=== PATIENT | female | born 1990 | race Caucasian/White ===

== ENCOUNTER 2017-06-27 00:29 | Inpatient (IN) | payer MEDICAID ==
[2017-06-27 01:55] VITALS: BMI 27.1
[2017-06-27 02:33] LABS: BASO % 0.4 % (0.0-2.0); EOS # 0.3 K/uL (0.0-0.7); EOS % 4.6 % (0.0-4.0); LYMPH # 1.7 K/uL (1.0-4.3); LYMPH % 25.8 % (20.0-40.0); MEAN CELL VOLUME 91.8 fl (81.0-99.0); MEAN CORPUSCULAR HEMOGLOBIN 31.6 pg (27.0-31.0); MEAN CORPUSCULAR HGB CONC 34.4 g/dL (33.0-37.0); MEAN PLATELET VOLUME 10.1 fl (7.2-11.7); MONO # 0.7 K/uL (0.0-0.8); MONO % 10.1 % (0.0-10.0); NEUT % 59.1 % (50.0-75.0); NRBC % 0.1 % (0.0-0.0); RED CELL DISTRIBUTION WIDTH 15.2 % (11.5-14.5); WHITE BLOOD COUNT 6.7 K/uL (4.8-10.8)
[2017-06-27] MEDS: Lactated Ringer's 1,000 ML IV SCH ×2 (02:45→03:45)
[2017-06-27] MEDS ORDERED: Oxytocin 30 units/LR 500ML 30 U/500 ML BAG IV ONE (03:22)
[2017-06-27 03:23] VITALS: O2SAT 100
[2017-06-27] MEDS ORDERED: Lactated Ringer's 1,000 ML IV SCH (04:45)
[2017-06-27] MEDS ORDERED: ceFAZolin 1 GM in Sodium Chloride 0.9% 100 ML IVPB ONE (05:30)
--- NOTE | 2017-06-27 06:26 | OBHP ---
Datetime: 06/27/2017 02:30 IP Adm Impression: Term, intrauterine ; Ruptured Membranes Pelvic Type - PN: Adequate Extremities - PN: Normal Abdomen - PN: Normal Back - PN: Normal Breast - PN: Not Done Lungs - PN: Normal Heart - PN: Normal Thyroid - PN: Not Done Neurologic - PN: Normal HEENT - PN: Normal General - PN: Normal FHR - Baseline A Provider: 137 Contraction Comments Provider: present x4-5 minutes Gestation - Est Wks by US: 38.6 EGA AdmitDate IP: 38.6 Vital Signs Provider: Reviewed; Within Normal Limits IP Indication for Induction: PROM IP Chief Complaint: Suspected ruptured membranes NICHD Variability Prov Fetus A: Moderate 6-25bpm NICHD Accel Fetus A IP Provider: 15X15 FHR Category Provider Fetus A: Category I NICHD Decel Fetus A IP Provider: None Dilatation, Provider: 0 Effacement, Provider: 0 Genitourinary Exam: Normal DTRs - PN: Not Done Datetime: 06/27/2017 02:00 IP Admit Plan: Admit to unit; Initiate Section protocol Admit Comment, IP Provider: CHIEF COMPLAINT: LOF HPI: 26 yo at 38.6 wks GA with EDC by lmp +ROM, FM, CTX; - VB last U/S 05/22/2017 last visit06/20/2017 GBS neg [facility] care [facility] chart rev'd PAST OB HX: 2012 stat C/S: meconium in DR @ 40 week, M PAST [employer] HX: STD: neg, PAP: pt. unsure PMHX: none PAST SX HX: c/s 2012 SOCIAL HX: Denies: SMOKING, ALCOHOL, DRUGS MEDICATION: PNV, Tylenol 250 mg x2 ALLERGIES: NKDA VITALS: 116/63 88 PE: General: pleasant HEENT: normocephalic, PERRLA; AAOx3 Heart: no murmurs, regular rate and rhythm, S1, S2 Lungs: clear to auscultation bilaterally, no wheezing Abodmen: gravid CVA: negative SSE/PELVIC EXN: closed cervix Bed side u/s: IUP MONITOR (normal) Variablity: moderate: 6-25 bpm ACC: 15x15 DECC: none FHR: 137 ASSESSMENT: 26 yo IUP at 38.6 wks with h/o c/s in 2013 for meconium Undocumented scar. Admitt ed for early labor Anemia 10.8/32.2 PLAN Admit to Andrade Mauricio, PGY1 OB Hospitalist note: This pt was seen and examined by me. Agree with above note. MEREO With translating yrn, shelli and procedure was explained with risks/complications. She unde rstood. Her questoins answered. Informed consent obtained Amniotic Fluid Color, Provider: Clear Membranes, Provider: Ruptured Comments, ACOG Physical Exam: ROS: General: no weakness; no fatigue HEENT: no TOBIAS; no visual dist CV: no palpitations; no no CP GI: no N/V no diarhea : no F/U/D MS: No joint pain Pool Provider: Positive IP Hx Assessment: The History has been Reviewed and is Current
[2017-06-27] MEDS ORDERED: Phenylephrine 10 mg/ml Inj ONE (06:58)
[2017-06-27] MEDS ORDERED: DiphenhydrAMINE 50 mg/ml Inj IVP PRN ×2 (07:26→10:47)
[2017-06-27] MEDS ORDERED: Oxycodone/Acetaminophen 5/325 mg Tab PO PRN (07:52)
[2017-06-27] MEDS: Oxycodone/Acetaminophen 5/325 mg Tab PO PRN ×3 (11:14→21:21)
[2017-06-28] MEDS: Oxycodone/Acetaminophen 5/325 mg Tab PO PRN ×4 (01:01→20:08)
--- NOTE | 2017-06-28 02:04 | OP ---
PROCEDURE DATE: 06/27/2016 PREOPERATIVE DIAGNOSES: Intrauterine at 38 plus weeks gestation, early labor, previous undocumented scar. POSTOPERATIVE DIAGNOSES: Intrauterine at 38 plus weeks gestation, early labor, previous undocumented scar. PROCEDURE: Repeat low transverse section via previous skin incision. SURGEON: Elia Uribe DO. BACK PANEL PADDER: Brock Pineda MD (Dr. Brock Pineda is a board certified [employer] physician, who was available to assist on this case. There were no residents available. His presence was vital and necessary for the procedure and he was present from the time of incision to the delivery of the infant to the closure of the skin). ANESTHESIOLOGIST: oWng Myers MD and Alban Caputo MD. ANESTHESIA: Spinal. OPERATIVE FINDINGS: Live infant delivered from cephalic presentation, using vacuum assist x1, no pop offs. score 9 and 9 given at 1 and 5 minutes respectively. Placenta was delivered intact manually. Clear amniotic fluid noted. Ovaries and tubes appeared to be within normal limits grossly. She remained hemodynamically stable throughout the procedure. All equipments, sponge, and needles accounted for. ESTIMATED BLOOD LOSS: 800 mL. DESCRIPTION OF PROCEDURE: Chen was brought to the operating room, compression boots were placed on both lower extremities, she was given spinal anesthesia by Dr. Myers and placed in supine position. Catheter was used to drain the bladder of its contents and was left in place and noted to be draining clear urine. She was then draped and prepped in the usual sterile manner. Once adequate anesthesia was obtained, an incision was made through the previous surgical scar, Pfannenstiel incision. Using a scalpel the incision was then taken down to underlying fascia using electrocautery. Fascia was nicked in the midline and extended bilaterally using electric cautery, inferior aspect of the fascia was grasped using 2 Melody clamps and tented up and the rectus muscle was both bluntly and sharply dissected. Using electrocautery same was done with superior aspect of the fascia; in the midline superiorly the rectus muscle was grasped using 2 Allis clamps, tented up and the midline of the rectus muscle was incised using scalpel. Upon identifying the peritoneum this was tented up using 2 Radha clamps and incised using Metzenbaum scissors. Upon entering the peritoneal cavity incision was then extended superiorly and inferiorly with direct visualization of the bladder and intestines. Bladder blade was then inserted. Two lap pads were placed in the pericolic gutters. Incision was made above the bladder lying using Metzenbaum scissors and extended bilaterally. Bladder blade was then inserted upon the bladder flap. A low transverse incision was made using the scalpel. Upon entering the uterus, clear amniotic fluid was noted. The incision was then extended bilaterally using Band-Aid scissors. Attempt was made to delivery the 's head. Incision was noted to be on the smaller side and this was extended using a scalpel, also rectus muscle was cut bilaterally using Band-Aid scissors superiorly away from the bladder and in a transverse fashion. Thereafter attempt was made to deliver the infant without success. Thereafter the Kiwi vacuum was applied x1, was then delivered easily with gentle traction, Kiwi was removed, was then delivered as atraumatically as possible. Infant was crying spontaneously, bulb suctioned nasopharyngeally. The cord was clamped and cut. The infant was handed to the storeroom attendant in attendance. Cord bloods were obtained. Placenta was delivered intact manually. Uterus was then exteriorized, cleared of debris and clots and good contraction of the uterus was noted. Ovaries and tubes appeared to be within normal limits grossly. A 0 Vicryl suture was used to close first layer in interlocking fashion. Second layer was closed using 0 Vicryl suture imbricating the first layer. Good hemostasis was assured. Thereafter, uterus was then placed back into the peritoneal cavity after irrigation was performed. Lower uterine incision was noted to have good hemostasis. All equipment was removed and accounted for. A 0 Vicryl suture was used to approximate the peritoneum in running fashion. Rectus muscle was noted to have good hemostasis. A 0 Vicryl suture was used to approximate the muscle x3. A 0 Vicryl suture was then used to approximate the part of muscle that was incised. A 0 Vicryl suture was used to approximate the fascial layer in running fashion. Irrigation was performed. Hemostasis assured using electrocautery and subcuticular layer 3-0 Vicryl suture was used to approximate the skin in a running fashion. Dermabond, Steri-Strips, pressure bandage were applied. All equipments, sponge, and needles accounted for. She was brought to the recovery room in stable condition. Elia Uribe DO [facility] # [id number]
[2017-06-28 08:03] LABS: HEMATOCRIT 28.9 % (34.0-47.0); MEAN CELL VOLUME 91.3 fl (81.0-99.0); MEAN CORPUSCULAR HEMOGLOBIN 31.8 pg (27.0-31.0); MEAN CORPUSCULAR HGB CONC 34.9 g/dL (33.0-37.0); RED CELL DISTRIBUTION WIDTH 14.8 % (11.5-14.5); WHITE BLOOD COUNT 7.3 K/uL (4.8-10.8)
[2017-06-29] MEDS: Oxycodone/Acetaminophen 5/325 mg Tab PO PRN ×2 (00:46→17:58)
--- NOTE | 2017-06-29 00:48 | OBPPN ---
Datetime: 06/28/2017 05:50 PP Pain Prov: Within normal limits PP Nausea Prov: Denies PP Flatus Prov: Yes PP BM Prov: No PP Breasts Prov: Not Done PP Heart Prov: Normal PP Lungs Prov: Normal PP Abdomen/Uterus Prov: Normal PP Lochia Prov: Normal PP Vulva/Perineum Prov: Normal PP CVA Tenderness Prov: Normal PP Extremities Prov: Normal PP C/S Incision Prov: Not Applicable PP Comments Phys Exam Prov: Bandage to be removed at 10:00 for evaluation of incision; PP Impression Prov: Normal progression PP Plan Prov: Continue present management PP Progress Note Prov: S: 26 yo s/p on 06/27/17. Pt. is seen and examined at bedside this AM. No overnight events. Pt reports mild abdominal pain, but well controlled with pain meds. d/c parks at 07:00, dressing to be removed at 10:00 per patient request. no nausea, advised to advance d iet as tolerated. Breast feeding with formula supplementation without difficulty. Lochia is similar t o menses volume. no Bowel movement, but passing gas per rectum. Denies fever/chills, diarrhea, nausea /vomiting, chest pain, dyspnea, and dizziness. O: VS: stable GEN: NAD Cardio: s1s2, no M/G/R Resp: clear breath sounds b/l Abdomen: BS+, tenderness to palpation. Bandage without signs of bright red blood seeping through. Uterus is firm and at the level of the umbilicus. EXT: No edema, calves nontender NEURO/PSYCHI: AAOx3, no grossly focal deficit, preserved affect and mood. Assessment/Plan: 26 yo s/p on 06/27/17. Pt remains afebrile, tolerating pain with m edication, doing well on PPD#1. OOB with caution SCDs for DVT prophylaxis, encouraged ambulating Percocet 5/325mg, and Ibuprofen 600mg for pain. Colace 100mg PO BID for constipation Encourage and ambulating f/u CBC post op, stable pending results Tdap before d/c Anticipated d/c to home in 2 days, 06/30/17 --- Marc Mauricio, PGY-1 Vital Signs Provider PP: Reviewed; Within Normal Limits
--- NOTE | 2017-06-29 13:30 | OBPPN ---
Datetime: 06/29/2017 05:50 PP Pain Prov: Within normal limits PP Nausea Prov: Denies PP Flatus Prov: Yes PP BM Prov: No PP Breasts Prov: Normal PP Heart Prov: Normal PP Lungs Prov: Normal PP Abdomen/Uterus Prov: Normal PP Lochia Prov: Normal PP Vulva/Perineum Prov: Not Done PP CVA Tenderness Prov: Normal PP Extremities Prov: Normal PP C/S Incision Prov: Normal PP Progress Prov: Normal PP Impression Prov: Normal progression PP Plan Prov: Continue present management PP Progress Note Prov: S: 26 yo s/p on 06/27/17. Pt. is seen and examined at bedside this AM. No overnight events. Pt reports mild abdominal pain, but well controlled with pain meds. d/c parks, dressing removed and healing well. no nausea, advised to advance diet as tolerated. Breast fe eding with formula supplementation without difficulty. Lochia is similar to menses volume. no Bowel m ovement, but passing gas per rectum. Denies fever/chills, diarrhea, nausea/vomiting, chest pain, dysp juanita, and dizziness. O: VS: stable GEN: NAD Cardio: s1s2, no M/G/R Resp: clear breath sounds b/l Abdomen: BS+, tenderness to palpation. Incision scar noted, well healing no exudate seen, dry and intact. . Uterus is firm and at the level of the umbilicus. EXT: No edema, calves nontender NEURO/PSYCHI: AAOx3, no grossly focal deficit, preserved affect and mood. Assessment/Plan: 26 yo s/p on 06/27/17. Pt remains afebrile, tolerating pain with m edication, doing well on POD#2. OOB with caution SCDs for DVT prophylaxis, encouraged ambulating Percocet 5/325mg, and Ibuprofen 600mg for pain. Colace 100mg PO BID for constipation Encourage and ambulating f/u CBC post op, stable 10.1/28.9 Tdap before d/c Anticipated d/c to home tomorrow, 06/30/17 --- Marc Mauricio, PGY-1 The patient was seen with the resident I agree with the notes Encourage ambulation and analgesia as needed IP PP Procedures: None Vital Signs Provider PP: Reviewed; Within Normal Limits
[2017-06-30] MEDS ORDERED: Oxycodone/Acetaminophen 5/325 mg Tab PO ONE (10:31)
--- NOTE | 2017-06-30 11:29 | OBPPN ---
Datetime: 06/30/2017 06:04 PP Pain Prov: Within normal limits PP Nausea Prov: Denies PP Flatus Prov: Yes PP BM Prov: Yes PP Breasts Prov: Normal PP Heart Prov: Normal PP Lungs Prov: Normal PP Abdomen/Uterus Prov: Normal PP Lochia Prov: Normal PP Vulva/Perineum Prov: Not Done PP CVA Tenderness Prov: Normal PP Extremities Prov: Normal PP C/S Incision Prov: Normal PP Progress Prov: Normal PP Impression Prov: Normal progression PP Plan Prov: Discharge PP Progress Note Prov: S: 26 yo s/p on 06/27/17. Pt. is seen and examined at bedside this AM. No overnight events. Pt reports mild abdominal pain, but well controlled with pain meds. d/c parks, dressing removed and healing well. no nausea, advised to advance diet as tolerated. Breast fe eding with formula supplementation without difficulty. Lochia is similar to menses volume. no Bowel m ovement, but passing gas per rectum. Denies fever/chills, diarrhea, nausea/vomiting, chest pain, dysp juanita, and dizziness. O: VS: stable GEN: NAD Cardio: s1s2, no M/G/R Resp: clear breath sounds b/l Abdomen: BS+, tenderness to palpation. Incision scar noted, well healing no exudate seen, dry and intact. Uterus is firm and at the level of the umbilicus. EXT: No edema, calves nontender NEURO/PSYCHI: AAOx3, no grossly focal deficit, preserved affect and mood. Assessment/Plan: 26 yo s/p on 06/27/17. Pt remains afebrile, tolerating pain with m edication, doing well on POD#3. OOB with caution Encouraged ambulating Percocet 5/325mg, and Ibuprofen 600mg for pain. Colace 100mg PO BID for constipation Encourage and ambulating f/u CBC post op, stable 10.1/28.9 Tdap: pt shared that she recently received vaccine Anticipated d/c to home today, 06/30/17 --- Marc Mauricio, PGY-1 OBH ADDENDULM: pt seen _ examined by me. agree with above assessment and plan. IP PP Procedures: None Vital Signs Provider PP: Reviewed; Within Normal Limits
--- NOTE | 2017-06-30 11:31 | OBDCSUM ---
Datetime: 06/30/2017 06:07 Discharged to, Provider: Home Follow up at, Provider: Teddy Disch Instr Activity: Normal activity Disch Instr Diet: Regular Discharge Instructions, Provider: Routine instructions given Discharge Diagnosis, Provider: Term Delivered Discharge Time: 06/30/2017 10:00 Follow up in weeks, Provider: Peds 3-7 days; wound care 3-7 days;incision 4-6 weeks Disch Referrals: None; [employer] Contraception discussed, Prov: Yes Disch Activity Restrictions: No exercising; No lifting; No driving; No sexual activity; Nothing in v agina - [place], tampons, douche Discharge Comment, Provider: DOA: 06/26/2017 EGA: 38.6 Diagnosis: Term PRisk factors: none summary of : 26 yo F L_D summary DOL: 06/27/2017 at 07:17 NB: F : 06/30 Weight: 3035g PP summary No serious complications during PP. Lochia= menses, mild pain, controlled with medications Rubella immune, Tdap pt shares done recently Blood type: O+ CBC pp: .9 Discharge Date: 06/30/17 Time 10:00 AM Discharge Instructions: -encourage -percocet/Ibuprofen for pain PRN -Colace for constipation -Ambulate as tolerated -f/u NB visit and PP visit --- Marc Mauricio, PGY-1 pt needs incision check in 1wk. Contraception after Delivery: Undecided
[2017-06-30 19:01] VITALS: BP 134/60; PULSE 73; RESP 19; TEMP 98.7
== END 2017-06-30 14:50 | disposition home or self-care (01) | DRG 370 ==
LOC: H.EROB2 00:29 → H.L&D 01:55 → H.OB/GYN 10:39
PROVIDERS: ADMIT Obstetrics & Gynecology; ATTEND Obstetrics & Gynecology
PROC: 10D00Z1 Extraction of Products of Conception, Low, Open Approach (ICD-10-PCS; principal; 2017-06-27)
PROC: 4A1HXCZ Monitoring of Products of Conception, Cardiac Rate, External Approach (ICD-10-PCS; 2017-06-27)
DX: O34.211 Maternal care for low transverse scar from previous cesarean delivery (principal); O99.02 Anemia complicating childbirth; D64.9 Anemia, unspecified; Z37.0 Single live birth; N85.8 Other specified noninflammatory disorders of uterus; K59.00 Constipation, unspecified; Z3A.38 38 weeks gestation of pregnancy